=== PATIENT | male | born 1980 | race Two or more races ===

== ENCOUNTER 2024-12-30 08:02 | Observation (INO) | payer OTHER ==
[2024-12-30 08:09] VITALS: BMI 29.9
[2024-12-30] MEDS ORDERED: KETOROLAC TROMETHAMINE 30 MG/1 ML VIAL ONE (09:16)
[2024-12-30] MEDS: KETOROLAC TROMETHAMINE 30 MG/1 ML VIAL IM ONE (09:25)
[2024-12-30] MEDS ORDERED: morphine SULFATE 4 MG/ML VIAL ONE (12:20)
[2024-12-30] MEDS: SODIUM CHLORIDE 0.9% 500 ML INFUS.BAG IV ONE (12:42)
[2024-12-30] MEDS: morphine CARPU-JECT 4 MG/1 ML DISP.SYRIN IVPUSH ONE (12:42)
[2024-12-30 12:44] LABS: ABSOLUTE IMMATURE GRANULOCYTES 0.02 x10^3/uL (0.0-0.031); BASOPHILS # 0.06 x10^3/uL (0.01-0.08); EOSINOPHIL % 3.2 % (0.8-7.0); EOSINOPHILS # 0.28 x10^3/uL (0.04-0.54); HEMATOCRIT 38.7 % (40.1-51.0); HEMOGLOBIN 12.6 g/dL (13.7-17.5); MCHC 32.6 g/dl (32.3-36.5); MEAN CELL VOLUME 95.1 fl (79.0-92.2); MEAN PLT VOLUME 10.5 fl (9.4-12.4); MONOCYTE # 0.53 x10^3/uL (0.30-0.82); MONOCYTE % 6.1 % (5.3-12.2); PLATELET COUNT 248 x10^3/uL (163-337); RDW 12.6 % (12.1-15.9)
[2024-12-30 13:09] LABS: POTASSIUM 4.3 mmol/L (3.5-5.1)
[2024-12-30 13:11] LABS: CALCIUM 9.2 mg/dL (8.5-10.1)
[2024-12-30 13:12] LABS: ALBUMIN 3.8 g/dl (3.4-5.0); BLOOD UREA NITROGEN 11.9 mg/dL (7-18)
[2024-12-30 13:15] LABS: CREATININE 0.7 mg/dL (0.55-1.3)
[2024-12-30 13:16] LABS: BILIRUBIN,TOTAL 0.4 mg/dL (0.2-1); TOT PROT 6.9 g/dl (6.4-8.2)
[2024-12-30 13:51] LABS: HCV DIAGNOSTIC IN-HOUSE W/RFLX NON-REACTIVE (NONREACTIVE)
[2024-12-30 13:52] LABS: HIV INTERPRETATION NEGATIVE (NEGATIVE)
[2024-12-30] MEDS ORDERED: ACETAMINOPHEN 325 MG TABLET (FP) PO PRN (14:08)
[2024-12-30] MEDS: IBUPROFEN 400 MG TABLET (FP) PO PRN (16:48)
[2024-12-30] MEDS: oxyCODONE HCL 5 MG TABLET PO PRN (18:07)
[2024-12-31] MEDS: NAPROXEN 250 MG TABLET PO SCH (08:56)
[2024-12-31] MEDS: LIDOCAINE 5% TOPICAL PATCH TP SCH (08:58)
[2024-12-31 09:25] LABS: HEMATOCRIT 40.9 % (40.1-51.0); HEMOGLOBIN 12.6 g/dL (13.7-17.5); MCHC 30.8 g/dl (32.3-36.5); MEAN CELL VOLUME 99.5 fl (79.0-92.2); MEAN PLT VOLUME 10.3 fl (9.4-12.4); PLATELET COUNT 243 x10^3/uL (163-337)
[2024-12-31 09:47] LABS: POTASSIUM 4.3 mmol/L (3.5-5.1)
[2024-12-31 09:49] LABS: ALBUMIN 3.5 g/dl (3.4-5.0)
[2024-12-31 09:50] LABS: BLOOD UREA NITROGEN 15.6 mg/dL (7-18)
[2024-12-31 09:53] LABS: CREATININE 0.8 mg/dL (0.55-1.3)
[2024-12-31 09:54] LABS: BILIRUBIN,TOTAL 0.4 mg/dL (0.2-1); TOT PROT 6.5 g/dl (6.4-8.2)
[2024-12-31] MEDS: INSULIN ASPART SLIDING SCALE (NOVOLOG) 1 VIAL SQ SCH (10:50)
[2024-12-31] MEDS ORDERED: ACETAMINOPHEN 325 MG TABLET (FP) PO PRN (15:43)
[2024-12-31] MEDS: ACETAMINOPHEN 325 MG TABLET (FP) PO SCH (16:30)
[2024-12-31] MEDS: LIDOCAINE 5% TOPICAL PATCH TP ONE (22:25)
[2024-12-31] MEDS: LIDOCAINE PATCH REMOVAL MC SCH ×2 (22:25)
[2025-01-01] MEDS: diphenhydrAMINE HCL 25 MG CAPSULE (FP) PO ONE (06:02)
[2025-01-01 08:22] LABS: HEMATOCRIT 37.9 % (40.1-51.0); HEMOGLOBIN 12.2 g/dL (13.7-17.5); MCHC 32.2 g/dl (32.3-36.5); MEAN CELL VOLUME 96.4 fl (79.0-92.2); MEAN PLT VOLUME 10.7 fl (9.4-12.4); PLATELET COUNT 244 x10^3/uL (163-337); RDW 12.6 % (12.1-15.9)
[2025-01-01 08:44] LABS: POTASSIUM 4.4 mmol/L (3.5-5.1)
[2025-01-01 08:46] LABS: ALBUMIN 3.8 g/dl (3.4-5.0); BLOOD UREA NITROGEN 14.7 mg/dL (7-18); CALCIUM 9.5 mg/dL (8.5-10.1); MAGNESIUM 1.9 mg/dL (1.8-2.4)
[2025-01-01 08:50] LABS: CREATININE 0.7 mg/dL (0.55-1.3); PHOSPHOROUS 3.8 mg/dL (2.5-4.9)
[2025-01-01 08:51] LABS: BILIRUBIN,TOTAL 0.5 mg/dL (0.2-1); TOT PROT 6.5 g/dl (6.4-8.2)
[2025-01-01 12:16] VITALS: BP 134/78; PULSE 63; RESP 16; TEMP 97.5
== END 2025-01-01 11:59 | disposition home or self-care (01) ==
LOC: JER 08:02 → INTOOBSV 13:49 → UNDOADMOB 13:49 → JERBED 13:49 → J6S 15:27
PROVIDERS: ADMIT Internal Medicine; ATTEND Internal Medicine
PROC: 3E0233Z Introduction of Anti-inflammatory into Muscle, Percutaneous Approach (ICD-10-PCS; principal; 2024-12-30)
PROC: 3E033NZ Introduction of Analgesics, Hypnotics, Sedatives into Peripheral Vein, Percutaneous Approach (ICD-10-PCS; 2024-12-30)
PROC: 3E0337Z Introduction of Electrolytic and Water Balance Substance into Peripheral Vein, Percutaneous Approach (ICD-10-PCS; 2024-12-30)
DX: S22.42XA Multiple fractures of ribs, left side, initial encounter for closed fracture (principal); S09.93XA Unspecified injury of face, initial encounter; W50.0XXA Accidental hit or strike by another person, initial encounter; Y93.89 Activity, other specified; E11.9 Type 2 diabetes mellitus without complications; Y92.89 Other specified places as the place of occurrence of the external cause; I10 Essential (primary) hypertension
CPT/HCPCS: 36415; 70450-TC; 70486-TC; 71046-TC-FY; 71111-TC-FY; 71260-TC; 80053; 82962; 83735; 84100; 85025; 85027; 86803; 87389; 99285-25; G0378